=== PATIENT | female | born 1950 | race African-American/Black ===

== ENCOUNTER 2017-05-23 07:54 | Emergency (ER) | payer MEDICARE, MEDICAID ==
[~2017-05-23] VITALS: Ht 167.6 cm; Wt 72.0 kg
[~2017-05-23 07:54] MED LIST: ATOR40TA70 PO; AZOPT EACHEYE; BIMA2.5D4 EACHEYE; CHOL100044 PO; CLOP75TA33 PO; DOCU-138 PO; FERR-63 PO; FOLI-43 PO; GABA-531 PO; MAGN400C PO; NEBI20TA2 PO; OMEP20TA2 PO; PROAIR INH; SITA100T11 PO; TIMO15DR12 EACHEYE; TRAM50TA3 PO; TRIA1CAP6 PO; VITAMIN C PO; WELCHOL PO
[2017-05-23] MEDS ORDERED: LIDOCAINE HCL 1% 20ML VIAL (Pyxis) INJ MC ONE (09:15)
[2017-05-23 10:40] VITALS: BP 196/62
[2017-05-23] MEDS ORDERED: ACETAMINOPHEN 500MG TABLET PO ONE (10:45)
== END 2017-05-23 11:01 | disposition home or self-care (01) ==
LOC: ER 08:19
DX: S01.511A Laceration without foreign body of lip, initial encounter (principal); I10 Essential (primary) hypertension; E11.9 Type 2 diabetes mellitus without complications; J45.909 Unspecified asthma, uncomplicated; M19.90 Unspecified osteoarthritis, unspecified site; Z86.73 Personal history of transient ischemic attack (TIA), and cerebral infarction without residual deficits; Z88.8 Allergy status to other drugs, medicaments and biological substances; Z88.1 Allergy status to other antibiotic agents; Z91.012 Allergy to eggs; Z79.01 Long term (current) use of anticoagulants; W18.30XA Fall on same level, unspecified, initial encounter; Y93.A1 Activity, exercise machines primarily for cardiorespiratory conditioning; Y92.89 Other specified places as the place of occurrence of the external cause; Y99.8 Other external cause status
CPT/HCPCS: 12011; 99284; J3490

== ENCOUNTER 2017-09-03 01:11 | Emergency (ER) | payer MEDICARE, MEDICAID ==
[~2017-09-03] VITALS: Ht 157.5 cm; Wt 87.0 kg
[2017-09-03 03:49] LABS: BASOPHILS % 0.3 % (0.0-2.0); EOSINOPHILS % 1.5 % (0.0-5.0); HEMATOCRIT. 33.3 % (36.0-48.0); HEMOGLOBIN. 10.9 g/dL (12.0-16.0); LYMPHOCYTES % 25.7 % (20.0-50.0); MEAN CORPUSCULAR HEMOGLOBIN 29.4 pg (28.0-32.0); MEAN CORPUSCULAR VOLUME 89.7 fL (81.0-99.0); MEAN PLATELET VOLUME 7.4 fl (7.4-10.4); MONOCYTES % 7.6 % (2.0-8.0); NEUTROPHILS % 64.9 % (40.0-76.0); PLATELET 275 x1000/uL (130-400); RED BLOOD CELL COUNT 3.71 mill/uL (4.2-5.4); RED CELL DISTRIBUTION WIDTH 12.9 % (11.6-14.6)
[2017-09-03 03:52] LABS: CHLORIDE 103 mEq/L (98-107)
[2017-09-03 04:26] LABS: CLARITY URINE CLEAR (CLEAR); COLOR URINE YELLOW (YELLOW); KETONES URINE NEGATIVE (NEGATIVE); LEUKOCYTE ESTERASE URINE 1+ (NEGATIVE); NITRITE URINE NEGATIVE (NEGATIVE); OCCULT BLOOD URINE NEGATIVE (NEGATIVE); PROTEIN URINE NEGATIVE (NEGATIVE); UROBILINOGEN URINE 0.2 E.U./dL (0.2-1.0)
[2017-09-03] MEDS ORDERED: KETOROLAC 30MG/ML VIAL IV ONE (04:30)
[2017-09-03 07:50] VITALS: BP 138/73
== END 2017-09-03 08:12 | disposition home or self-care (01) ==
LOC: ER 01:11
DX: R51 Headache (principal); J45.909 Unspecified asthma, uncomplicated; E11.9 Type 2 diabetes mellitus without complications; I10 Essential (primary) hypertension; M19.90 Unspecified osteoarthritis, unspecified site; Z86.73 Personal history of transient ischemic attack (TIA), and cerebral infarction without residual deficits; Z88.8 Allergy status to other drugs, medicaments and biological substances; Z88.1 Allergy status to other antibiotic agents; Z91.012 Allergy to eggs; Z79.01 Long term (current) use of anticoagulants
CPT/HCPCS: 36415; 70450; 71045; 80053; 81003; 85025; 86850; 86900; 86901; 93005; 96374; 99285; J1885

== ENCOUNTER → 2017-09-16 | Outpatient (CLI) | payer MEDICARE, MEDICAID | END | disposition home or self-care (01) | LOC: RAD 10:11 | PROVIDERS: ATTEND Specialist | DX: Z12.31 Encounter for screening mammogram for malignant neoplasm of breast (principal) | CPT/HCPCS: 77067 ==

== ENCOUNTER 2021-12-31 11:10 | Emergency (ER) | payer MEDICARE, MEDICAID ==
[~2021-12-31] VITALS: Ht 154.9 cm; Wt 88.0 kg
[~2021-12-31 11:10] MED LIST changes: -GABA-531 PO; +GABA-532 PO; -OMEP20TA2 PO; +OMEP20TA23 PO
[2021-12-31 11:32] VITALS: BP 142/56
[2021-12-31] MEDS ORDERED: IBUP-2028 MT (16:01)
== END 2021-12-31 16:34 | disposition home or self-care (01) ==
LOC: ER 11:10
DX: M25.561 Pain in right knee (principal); M25.562 Pain in left knee; D64.9 Anemia, unspecified; J45.909 Unspecified asthma, uncomplicated; E11.9 Type 2 diabetes mellitus without complications; I10 Essential (primary) hypertension; Z86.73 Personal history of transient ischemic attack (TIA), and cerebral infarction without residual deficits; Z98.51 Tubal ligation status; Z79.899 Other long term (current) drug therapy
CPT/HCPCS: 73060; 73560; 99284

== ENCOUNTER 2022-01-21 11:14 | Inpatient (IN) | payer MEDICARE, MEDICAID ==
[~2022-01-21] VITALS: Ht 154.9 cm; Wt 88.5 kg
[~2022-01-21 11:14] MED LIST changes: +IBUP-2028 MT
[2022-01-21] MEDS ORDERED: KETOROLAC 30MG/ML VIAL IV STA (11:47)
[2022-01-21 12:20] LABS: BASOPHILS % 0.3 % (0.0-2.0); EOSINOPHILS % 1.1 % (0.0-5.0); HEMOGLOBIN. 10.6 g/dL (12.0-16.0); LYMPHOCYTES % 26.9 % (20.0-50.0); MEAN CORPUSCULAR HEMOGLOBIN 30.5 pg (28.0-32.0); MEAN CORPUSCULAR VOLUME 92.5 fL (81.0-99.0); MEAN PLATELET VOLUME 7.6 fl (7.4-10.4); MONOCYTES % 6.6 % (2.0-8.0); NEUTROPHILS % 65.1 % (40.0-76.0); PLATELET 271 x1000/uL (130-400); RED BLOOD CELL COUNT 3.46 mill/uL (4.2-5.4)
[2022-01-21 12:36] LABS: CHLORIDE 105 mEq/L (98-107); PROTHROMBIN TIME 10.5 sec (9.6-11.0)
[2022-01-21] MEDS ORDERED: ACETAMINOPHEN 325MG TABLET PO PRN (13:45)
[2022-01-21] MEDS ORDERED: ONDANSETRON HCL 4MG/2ML INJ IV PRN (13:45)
[2022-01-21] MEDS ORDERED: DEXTROSE 50% WATER 50ML SYRINGE IV PRN (13:45)
[2022-01-21 14:52] VITALS: BP 165/45
[2022-01-21 15:00] VITALS: BP 165/45
[2022-01-21 17:31] VITALS: BP_SYST 155; BP_SYST 170; BP_DIAS 50
[2022-01-21] MEDS: BLOOD SUGAR DIAGNOSTIC STRIP TEST SCH ×2 (18:00→21:00)
[2022-01-21] MEDS: INSULIN LISPRO 100 UNITS/ML SUBCUT SCH ×2 (18:00→21:00)
[2022-01-21] MEDS: AMLODIPINE 10MG TABLET PO SCH (18:06)
[2022-01-21 19:10] LABS: CLARITY URINE CLOUDY (CLEAR); COLOR URINE YELLOW (YELLOW); KETONES URINE TRACE (NEGATIVE); LEUKOCYTE ESTERASE URINE 1+ (NEGATIVE); NITRITE URINE NEGATIVE (NEGATIVE); OCCULT BLOOD URINE NEGATIVE (NEGATIVE); PH URINE 5.5 (4.5-8.0); PROTEIN URINE TRACE (NEGATIVE); SPECIFIC GRAVITY URINE 1.018 (1.005-1.030); UROBILINOGEN URINE 0.2 E.U./dL (0.2-1.0)
[2022-01-21 20:00] VITALS: BP 124/59
[2022-01-22] VITALS: BP 122/65
[2022-01-22 03:44] VITALS: BP 119/54
[2022-01-22] MEDS: BLOOD SUGAR DIAGNOSTIC STRIP TEST SCH ×4 (07:00→20:53)
[2022-01-22] MEDS: INSULIN LISPRO 100 UNITS/ML SUBCUT SCH ×4 (07:00→20:53)
[2022-01-22 08:00] VITALS: BP 164/74
[2022-01-22 08:18] LABS: BASOPHILS % 0.4 % (0.0-2.0); EOSINOPHILS % 1.3 % (0.0-5.0); HEMATOCRIT. 30.5 % (36.0-48.0); HEMOGLOBIN. 9.9 g/dL (12.0-16.0); LYMPHOCYTES % 36.2 % (20.0-50.0); MEAN CORPUSCULAR HEMOGLOBIN 29.9 pg (28.0-32.0); MEAN CORPUSCULAR VOLUME 92.2 fL (81.0-99.0); MEAN PLATELET VOLUME 8.1 fl (7.4-10.4); MONOCYTES % 8.2 % (2.0-8.0); NEUTROPHILS % 53.9 % (40.0-76.0); PLATELET 239 x1000/uL (130-400); RED CELL DISTRIBUTION WIDTH 14.1 % (11.6-14.6)
[2022-01-22] MEDS: ASPIRIN 81MG TABLET PO SCH (08:35)
[2022-01-22] MEDS: AMLODIPINE 10MG TABLET PO SCH (08:36)
[2022-01-22] MEDS ORDERED: ASPIRIN 81MG TABLET PO SCH (09:00)
[2022-01-22] MEDS ORDERED: PNEUMOCOCCAL 23-VAL P-SAC VAC 0.5 ML IM ONE (10:00)
[2022-01-22] MEDS ORDERED: CEFTRIAXONE 1 G PREMIX 50 ML IV SCH (11:30)
[2022-01-22 12:00] VITALS: BP 174/67
[2022-01-22] MEDS: CEFTRIAXONE 1,000 MG in DEXTROSE 5% WATER 50 ML IV SCH (13:50)
[2022-01-22 15:13] LABS: T4 FREE 1.14 ng/dL (0.76-1.46)
[2022-01-22 16:00] VITALS: BP 152/59
[2022-01-22 20:00] VITALS: BP 141/53
[2022-01-22] MEDS: ATORVASTATIN CALCIUM 20MG TABLET PO SCH (20:53)
[2022-01-23] VITALS: BP 103/53
[2022-01-23 04:00] VITALS: BP 136/57
[2022-01-23] MEDS: BLOOD SUGAR DIAGNOSTIC STRIP TEST SCH ×3 (06:24→18:13)
[2022-01-23 08:00] VITALS: BP 155/56
[2022-01-23] MEDS ORDERED: ENOXAPARIN 40MG/0.4ML SYR SUBCUT SCH (09:00)
[2022-01-23] MEDS: ASPIRIN 81MG TABLET PO SCH (11:38)
[2022-01-23] MEDS: AMLODIPINE 10MG TABLET PO SCH (11:38)
[2022-01-23 12:00] VITALS: BP 148/68
[2022-01-23] MEDS: INSULIN LISPRO 100 UNITS/ML SUBCUT SCH ×4 (12:16→20:55)
[2022-01-23 16:00] VITALS: BP 123/63
[2022-01-23] MEDS: CEFTRIAXONE 1,000 MG in DEXTROSE 5% WATER 50 ML IV SCH (18:14)
[2022-01-23] MEDS: ATORVASTATIN CALCIUM 20MG TABLET PO SCH (20:53)
[2022-01-25] MEDS ORDERED: GLIP10TA10 MT (08:42)
== END 2022-01-23 22:30 | DRG 64 ==
LOC: ER 11:14 → EDBEDREQTM 12:09 → EDBEDREQ 12:09 → EDBEDREQSVC 12:09 → 6WST 13:26 → EDBEDREQ 13:29 → ENRESERV 13:38 → 6WST 15:22
PROVIDERS: ADMIT Family Medicine Adult Medicine; ATTEND Family Medicine Adult Medicine
DX: I63.81 Other cerebral infarction due to occlusion or stenosis of small artery (principal); N17.0 Acute kidney failure with tubular necrosis; G81.91 Hemiplegia, unspecified affecting right dominant side; D64.9 Anemia, unspecified; E66.9 Obesity, unspecified; E11.9 Type 2 diabetes mellitus without complications; E78.00 Pure hypercholesterolemia, unspecified; I10 Essential (primary) hypertension; R53.81 Other malaise; R26.89 Other abnormalities of gait and mobility; I25.10 Atherosclerotic heart disease of native coronary artery without angina pectoris; J45.909 Unspecified asthma, uncomplicated; Z82.3 Family history of stroke; Z90.710 Acquired absence of both cervix and uterus; Z98.51 Tubal ligation status; Z68.36 Body mass index [BMI] 36.0-36.9, adult; Z88.8 Allergy status to other drugs, medicaments and biological substances; Z91.012 Allergy to eggs; Z79.899 Other long term (current) drug therapy
CPT/HCPCS: 36415; 70544; 70551; 71045; 80048; 80053; 80061; 80307; 81003; 82607; 82746; 82962; 83036; 83605; 84145; 84439; 84443; 84481; 84484; 85025; 90732; 92523; 93005; 93306; 93880; 97116; 97162; 97166; 97530; 99285; J0696; J1650; J1815; J1885; J7060

== ENCOUNTER 2022-06-20 15:39 | Emergency (ER) | payer MEDICARE, MEDICAID ==
[~2022-06-20] VITALS: Ht 165.1 cm; Wt 71.0 kg
[~2022-06-20 15:39] MED LIST changes: +AMLO10TA80 PO; +ASPI-1160 PO; -BIMA2.5D4 EACHEYE; -FERR-63 PO; +GLIP10TA10 MT; +GLIP10TA10 PO; +LINA5TAB PO; -NEBI20TA2 PO; -SITA100T11 PO; -TRIA1CAP6 PO; -VITAMIN C PO
[2022-06-20 15:46] VITALS: BP 172/64
[2022-06-20] MEDS ORDERED: SODIUM CHLORIDE 0.9% 1,000 ML IV ONE (16:00)
[2022-06-20] MEDS ORDERED: ONDANSETRON HCL 4MG/2ML INJ IV ONE (16:00)
[2022-06-20 17:16] LABS: BASOPHILS % 0.3 % (0.0-2.0); EOSINOPHILS % 1.7 % (0.0-5.0); HEMATOCRIT. 29.6 % (36.0-48.0); HEMOGLOBIN. 9.7 g/dL (12.0-16.0); LYMPHOCYTES % 25.8 % (20.0-50.0); MEAN CORPUSCULAR HEMOGLOBIN 29.4 pg (28.0-32.0); MEAN CORPUSCULAR VOLUME 90.3 fL (81.0-99.0); MEAN PLATELET VOLUME 7.6 fl (7.4-10.4); MONOCYTES % 7.3 % (2.0-8.0); NEUTROPHILS % 64.9 % (40.0-76.0); PLATELET 378 x1000/uL (130-400); RED BLOOD CELL COUNT 3.28 mill/uL (4.2-5.4); RED CELL DISTRIBUTION WIDTH 14.1 % (11.6-14.6)
[2022-06-20 17:24] LABS: CHLORIDE 107 mEq/L (98-107)
== END 2022-06-21 02:03 | disposition home or self-care (01) ==
LOC: ER 15:55
DX: R42 Dizziness and giddiness (principal); R11.10 Vomiting, unspecified; J45.909 Unspecified asthma, uncomplicated; E11.9 Type 2 diabetes mellitus without complications; I10 Essential (primary) hypertension; Z86.73 Personal history of transient ischemic attack (TIA), and cerebral infarction without residual deficits; Z90.710 Acquired absence of both cervix and uterus; Z98.51 Tubal ligation status; Z79.899 Other long term (current) drug therapy
CPT/HCPCS: 36415; 70450; 71045; 80053; 82962; 83880; 84484; 85025; 99285; J7030

== ENCOUNTER → 2023-06-04 | Day surgery (SDC) | payer MEDICARE, MEDICAID ==
[~2023-06-04] VITALS: Ht 154.9 cm; Wt 71.2 kg
[~2023-06-04] MED LIST changes: +BUPIVACAINE HCL/PF 0.5% (5MG/ML) 10ML ONE; +CIPR-263 MT; +CLINDAMYCIN 600MG PREMIX 50 ML IV ONE; +DEXAMETHASONE 4MG/ML 1ML VIAL ONE; +ESOM40CA53 PO; +FENTANYL CITRATE/PF 50MCG/ML 2ML VIAL ONE; -GLIP10TA10 PO; +GLYCOPYRROLATE 0.2 MG/ML 2ML VIAL ONE; +HYDR-4001 MT; +INSU100I24 SQ; +LABETALOL 5MG/ML SYR 20 MG/4 ML SYRINGE IV PRN; +LEVA15HF4 IH; +MEPERIDINE HCL/PF 25MG/ML CPJ IV PRN; +METR-167 MT; +MIDAZOLAM HCL 2 MG/2 ML VIAL ONE; +NEBI10TA2 MT; +NEBI10TA2 PO; +NEOSTIGMINE METHYLSULFATE 1MG/ML 10 ML VIAL ONE; +ONDANSETRON HCL 4MG/2ML INJ ONE; +PROPOFOL 200MG/20ML VIAL IV ONE; +ROCURONIUM BROMIDE 10MG/ML VIAL 5ML IV ONE; +SEMA0.25 SQ; +SKIN ADHESIVE 0.7 GM EA TOP ONE; +SODIUM CHLORIDE 0.9% 1,000 ML IV SCH; +TRIA1TAB94 PO
[2023-06-04] MEDS: ONDANSETRON HCL 4MG/2ML INJ IV PRN (09:44)
[2023-06-04 09:47] VITALS: BP 135/62; PULSE 75; RESP 24
[2023-06-04] MEDS: HYDROMORPHONE HCL/PF 2MG/ML CPJ IV PRN (09:47)
== END | disposition home or self-care (01) ==
LOC: OR 05:09
PROVIDERS: ATTEND Surgery
DX: K80.10 Calculus of gallbladder with chronic cholecystitis without obstruction (principal); I10 Essential (primary) hypertension; E11.9 Type 2 diabetes mellitus without complications; M19.90 Unspecified osteoarthritis, unspecified site; Z86.2 Personal history of diseases of the blood and blood-forming organs and certain disorders involving the immune mechanism; Z79.899 Other long term (current) drug therapy; Z90.710 Acquired absence of both cervix and uterus; Z98.890 Other specified postprocedural states; Z79.82 Long term (current) use of aspirin; Z79.4 Long term (current) use of insulin; Z88.1 Allergy status to other antibiotic agents; Z88.8 Allergy status to other drugs, medicaments and biological substances
CPT/HCPCS: 82962; 88304; 47562; J3010; J3490 ×4; J1100; J2250; J2710; J2405; J2704; J1170; Z7610 ×27; A4217; J7030

== ENCOUNTER 2024-09-28 11:13 | Emergency (ER) | payer MEDICARE, MEDICAID ==
[~2024-09-28] VITALS: Ht 165.1 cm; Wt 80.0 kg
[~2024-09-28 11:13] MED LIST changes: -BUPIVACAINE HCL/PF 0.5% (5MG/ML) 10ML ONE; -CIPR-263 MT; -CLINDAMYCIN 600MG PREMIX 50 ML IV ONE; -DEXAMETHASONE 4MG/ML 1ML VIAL ONE; -ESOM40CA53 PO; +ESOM40CA65 PO; -FENTANYL CITRATE/PF 50MCG/ML 2ML VIAL ONE; +GABA-1180 PO; -GABA-532 PO; -GLIP10TA10 MT; +GLIP10TA17 MT; -GLYCOPYRROLATE 0.2 MG/ML 2ML VIAL ONE; -IBUP-2028 MT; -LABETALOL 5MG/ML SYR 20 MG/4 ML SYRINGE IV PRN; -LEVA15HF4 IH; +LEVA15HF9 IH; -LINA5TAB PO; -MEPERIDINE HCL/PF 25MG/ML CPJ IV PRN; -METR-167 MT; -MIDAZOLAM HCL 2 MG/2 ML VIAL ONE; +NEBI10TA10 MT; +NEBI10TA10 PO; -NEBI10TA2 MT; -NEBI10TA2 PO; -NEOSTIGMINE METHYLSULFATE 1MG/ML 10 ML VIAL ONE; -OMEP20TA23 PO; -ONDANSETRON HCL 4MG/2ML INJ ONE; -PROAIR INH; -PROPOFOL 200MG/20ML VIAL IV ONE; -ROCURONIUM BROMIDE 10MG/ML VIAL 5ML IV ONE; -SKIN ADHESIVE 0.7 GM EA TOP ONE; -SODIUM CHLORIDE 0.9% 1,000 ML IV SCH; -TIMO15DR12 EACHEYE; -TRAM50TA3 PO
[2024-09-28 11:34] VITALS: TEMP 36.7; O2SAT 97
[2024-09-28 11:58] LABS: BASOPHILS % 0.4 % (0.0-2.0); EOSINOPHILS % 0.7 % (0.0-5.0); HEMATOCRIT. 31.6 % (36.0-48.0); HEMOGLOBIN. 10.1 g/dL (12.0-16.0); LYMPHOCYTES % 26.8 % (20.0-50.0); MEAN CORPUSCULAR VOLUME 90.7 fL (81.0-99.0); MEAN PLATELET VOLUME 7.5 fl (7.4-10.4); MONOCYTES % 6.7 % (2.0-8.0); NEUTROPHILS % 65.4 % (40.0-76.0); PLATELET 253 x1000/uL (130-400); RED BLOOD CELL COUNT 3.49 mill/uL (4.2-5.4); RED CELL DISTRIBUTION WIDTH 14.3 % (11.6-14.6); WHITE BLOOD COUNT 8.9 x1000/uL (4.5-11.0)
[2024-09-28 12:08] LABS: INR 0.9; PROTHROMBIN TIME 10.2 sec (9.6-11.0)
[2024-09-28 12:10] LABS: CHLORIDE 103 mEq/L (98-107); POTASSIUM 4.2 mEq/L (3.5-5.1); SODIUM 135 mEq/L (136-145)
[2024-09-28 12:11] LABS: CALCIUM 9.4 mg/dL (8.7-10.4); CARBON DIOXIDE 25 mEq/L (21-32)
[2024-09-28 12:16] LABS: CREATININE 1.2 mg/dL (0.6-1.0); GLUCOSE 249 mg/dL (70-105); UREA NITROGEN BLOOD 23 mg/dL (9-23)
[2024-09-28 12:17] LABS: TROPONIN I HIGH SENSITIVITY 7 ng/L (3.0-34)
[2024-09-28 12:18] LABS: ALANINE AMINOTRANSFERASE 17 IU/L (10-49); ALBUMIN 3.9 g/dL (3.2-4.8); ASPARTATE AMINOTRANSFERASE 16 IU/L (<34); BILIRUBIN DIRECT 0.2 mg/dL (<=3.0); PHOSPHORUS 3.6 mg/dL (2.5-4.9)
[2024-09-28 12:19] LABS: BILIRUBIN TOTAL 0.6 mg/dL (0.1-1.0); PROTEIN TOTAL 7.1 g/dL (6.0-8.3)
[2024-09-28] MEDS: SODIUM CHLORIDE 0.9% 1,000 ML IV ONE (14:38)
[2024-09-28 15:49] LABS: CLARITY URINE CLEAR (CLEAR); COLOR URINE YELLOW (YELLOW); GLUCOSE URINE NEGATIVE (NEGATIVE); KETONES URINE NEGATIVE (NEGATIVE); LEUKOCYTE ESTERASE URINE NEGATIVE (NEGATIVE); NITRITE URINE NEGATIVE (NEGATIVE); OCCULT BLOOD URINE NEGATIVE (NEGATIVE); PH URINE 7.5 (4.5-8.0); PROTEIN URINE NEGATIVE (NEGATIVE); SPECIFIC GRAVITY URINE 1.009 (1.005-1.030); UROBILINOGEN URINE 0.2 E.U./dL (0.2-1.0)
[2024-09-28 16:37] VITALS: BP 138/50; PULSE 78; RESP 17; O2SAT 100
== END 2024-09-28 17:13 | disposition home or self-care (01) ==
LOC: ER 11:13
DX: R53.1 Weakness (principal); E11.9 Type 2 diabetes mellitus without complications; N17.9 Acute kidney failure, unspecified; J45.909 Unspecified asthma, uncomplicated; I10 Essential (primary) hypertension; Z90.710 Acquired absence of both cervix and uterus; Z86.73 Personal history of transient ischemic attack (TIA), and cerebral infarction without residual deficits; Z79.899 Other long term (current) drug therapy; Z79.84 Long term (current) use of oral hypoglycemic drugs; Z79.82 Long term (current) use of aspirin; Z79.02 Long term (current) use of antithrombotics/antiplatelets; Z91.012 Allergy to eggs
CPT/HCPCS: 99285; 71045; 80076; 80048; 81003; 83880; 83735; 84100; 85025; 85610; 84484; 36415; 93005; J7030

== ENCOUNTER 2025-04-03 04:50 | Inpatient (IN) | payer MEDICARE, MEDICAID ==
[~2025-04-03] VITALS: Ht 162.6 cm; Wt 73.0 kg
[~2025-04-03 04:50] MED LIST changes: +COLE625T13 PO; -ESOM40CA65 PO; -GABA-1180 PO; +GABA-529 PO; -GLIP10TA17 MT; +GLIP10TA17 PO; +HYDR-4009 MT; +LATA2.5D7 EACHEYE; -LEVA15HF9 IH; +LOSA25TA26 PO; -MAGN400C PO; +MAGN400T26 PO; +METO25TA6 PO; -NEBI10TA10 MT; -NEBI10TA10 PO; +OMEP40CA20 PO; -SEMA0.25 SQ; +SEMA2PEN SQ; -WELCHOL PO
[2025-04-03 04:52] VITALS: O2SAT 100
[2025-04-03] MEDS: SODIUM CHLORIDE 0.9% (SEPSIS BOLUS) IV ONE (06:57)
[2025-04-03] MEDS: LEVOFLOXACIN 500MG PREMIX 100 ML IV ONE (07:01)
[2025-04-03 07:27] LABS: INR 1.1
[2025-04-03 07:28] LABS: BASOPHILS % 0.1 % (0.0-2.0); EOSINOPHILS % 0.4 % (0.0-5.0); HEMATOCRIT. 23.1 % (36.0-48.0); HEMOGLOBIN. 7.5 g/dL (12.0-16.0); LYMPHOCYTES % 27.2 % (20.0-50.0); MEAN PLATELET VOLUME 7.4 fl (7.4-10.4); MONOCYTES % 3.7 % (2.0-8.0); NEUTROPHILS % 68.6 % (40.0-76.0); PLATELET 287 x1000/uL (130-400); RED BLOOD CELL COUNT 2.50 mill/uL (4.2-5.4); RED CELL DISTRIBUTION WIDTH 20.3 % (11.6-14.6)
[2025-04-03 07:38] LABS: CREATININE 0.9 mg/dL (0.6-1.0); TROPONIN I HIGH SENSITIVITY 5 ng/L (3.0-34); UREA NITROGEN BLOOD 13 mg/dL (9-23)
[2025-04-03 07:39] LABS: ASPARTATE AMINOTRANSFERASE 22 IU/L (<34); PROTEIN TOTAL 6.1 g/dL (6.0-8.3)
[2025-04-03 07:40] LABS: BILIRUBIN DIRECT 0.3 mg/dL (<=3.0); BILIRUBIN TOTAL 0.5 mg/dL (0.1-1.0)
[2025-04-03 09:21] LABS: CLARITY URINE TURBID (CLEAR); COLOR URINE ORANGE (YELLOW); GLUCOSE URINE NEGATIVE (NEGATIVE); KETONES URINE NEGATIVE (NEGATIVE); LEUKOCYTE ESTERASE URINE 3+ (NEGATIVE); NITRITE URINE NEGATIVE (NEGATIVE); OCCULT BLOOD URINE 3+ (NEGATIVE); PH URINE 6.5 (4.5-8.0); PROTEIN URINE 2+ (NEGATIVE); SPECIFIC GRAVITY URINE 1.009 (1.005-1.030); UROBILINOGEN URINE 0.2 E.U./dL (0.2-1.0)
[2025-04-03 09:47] LABS: BACTERIA URINE TRACE; RBC URINE TNTC /hpf (0-2); SQUAMOUS EPITHELIAL CELL URINE 1+ /lpf (RARE/1+); WBC URINE TNTC /hpf (0-2)
[2025-04-03 09:48] LABS: YEAST URINE NONE SEEN
[2025-04-03 10:38] LABS: TROPONIN I HIGH SENSITIVITY 8 ng/L (3.0-34)
[2025-04-03] MEDS ORDERED: CLONIDINE 0.1MG TABLET PO PRN (11:15)
[2025-04-03] MEDS ORDERED: DOCUSATE SODIUM 100MG CAPSULE PO PRN (11:15)
[2025-04-03] MEDS ORDERED: IPRATROPIUM/ALBUTEROL 0.5-3(2.5)MG/3ML NEB HHN PRN (11:15)
[2025-04-03] MEDS ORDERED: ACETAMINOPHEN 325MG TABLET PO PRN (11:15)
[2025-04-03] MEDS ORDERED: DEXTROSE 50% WATER 50ML SYRINGE IV PRN (11:15)
[2025-04-03] MEDS ORDERED: ONDANSETRON HCL 4MG/2ML INJ IV PRN (11:15)
[2025-04-03] MEDS: FERROUS SULFATE 325MG TABLET PO SCH (11:38)
[2025-04-03] MEDS: SODIUM CHLORIDE 0.9% 1,000 ML IV SCH (11:39)
[2025-04-03 12:29] LABS: VITAMIN B12 SERUM 2996 pg/mL (211-911)
[2025-04-03] MEDS: BLOOD SUGAR DIAGNOSTIC STRIP TEST SCH (13:00)
[2025-04-03] MEDS: ASPIRIN 81MG TABLET PO SCH (13:43)
[2025-04-03] MEDS: FOLIC ACID 1MG TABLET PO SCH (13:43)
[2025-04-03] MEDS: PANTOPRAZOLE SODIUM 40 MG/VIAL IV SCH (13:44)
[2025-04-03] MEDS ORDERED: EPOETIN ALFA-EPBX 4,000 UNITS/ML VIAL SUBCUT SCH (14:00)
[2025-04-03] MEDS: AMLODIPINE 10MG TABLET PO SCH (15:50)
[2025-04-03] MEDS: GABAPENTIN 100MG CAPSULE PO SCH (15:50)
[2025-04-03 16:59] VITALS: BP 133/57; PULSE 97; RESP 18; TEMP 35.9; O2SAT 100
[2025-04-03] MEDS: INSULIN LISPRO 100 UNITS/ML SUBCUT SCH (17:00)
[2025-04-03 17:04] LABS: CLARITY URINE TURBID (CLEAR); COLOR URINE RED (YELLOW); GLUCOSE URINE NEGATIVE (NEGATIVE); KETONES URINE TRACE (NEGATIVE); LEUKOCYTE ESTERASE URINE 3+ (NEGATIVE); NITRITE URINE NEGATIVE (NEGATIVE); OCCULT BLOOD URINE 3+ (NEGATIVE); PH URINE 6.0 (4.5-8.0); PROTEIN URINE 2+ (NEGATIVE); SPECIFIC GRAVITY URINE 1.011 (1.005-1.030); UROBILINOGEN URINE 0.2 E.U./dL (0.2-1.0)
[2025-04-03 17:22] LABS: BACTERIA URINE 1+; RBC URINE TNTC /hpf (0-2); SQUAMOUS EPITHELIAL CELL URINE 1+ /lpf (RARE/1+); WBC URINE TNTC /hpf (0-2)
[2025-04-03 18:12] VITALS: BP 133/57; PULSE 96; RESP 16; TEMP 36.0844
[2025-04-03 19:16] LABS: TROPONIN I HIGH SENSITIVITY 20 ng/L (3.0-34)
[2025-04-03 20:00] VITALS: BP 117/48; PULSE 87; RESP 20; TEMP 36.7; O2SAT 98
[2025-04-03] MEDS: LATANOPROST 0.005% OPHTH DROPS 2.5ML EACHEYE SCH (21:00)
[2025-04-03] MEDS: ATORVASTATIN CALCIUM 40MG TABLET PO SCH (21:30)
[2025-04-04] VITALS: BP 140/54; PULSE 82; RESP 18; TEMP 37; O2SAT 98
[2025-04-04 04:00] VITALS: BP 118/56; PULSE 97; RESP 18; TEMP 36.1; O2SAT 98
[2025-04-04] MEDS: ACETAMINOPHEN 325MG TABLET PO PRN (06:42)
[2025-04-04 07:57] VITALS: BP_SYST 124; BP_SYST 131; BP_DIAS 49; BP_DIAS 58; PULSE 18; PULSE 95; RESP 18; TEMP 35.8; O2SAT 93
[2025-04-04 12:16] VITALS: BP 125/51; PULSE 84; RESP 18; TEMP 35.7; O2SAT 100
[2025-04-04] MEDS: LEVOFLOXACIN 500MG PREMIX 100 ML IV SCH (13:00)
[2025-04-04] MEDS: SODIUM CHLORIDE 0.9% 250 ML IV ONE (13:08)
[2025-04-04 16:35] VITALS: BP 113/46; PULSE 82; RESP 20; TEMP 36.2; O2SAT 100
[2025-04-04 20:00] VITALS: BP 120/58; PULSE 89; RESP 18; TEMP 36; O2SAT 100
[2025-04-04] MEDS: LACTULOSE 20G/30ML UDC PO SCH (23:07)
[2025-04-04] MEDS: CALCIUM GLUCONATE 1,000 MG in SODIUM CHLORIDE 0.9% 50 ML IV NR (23:08)
[2025-04-05] VITALS (9 sets, daily range): BP systolic 93–139; BP diastolic 35–62; PULSE 89–109; RESP 18–20; TEMP 35.8–37.1; O2SAT 100
[2025-04-05 06:13] LABS: FOLATE HEMATOCRIT 20.0 % (34.0-46.6)
[2025-04-05] MEDS: SODIUM CHLORIDE 0.9% 1,000 ML IV ONE (10:15)
[2025-04-05 12:22] LABS: CREATININE 0.7 mg/dL (0.6-1.0)
[2025-04-05 12:23] LABS: UREA NITROGEN BLOOD 5 mg/dL (9-23)
[2025-04-05 12:28] LABS: FOLIC ACID (FOLATE) SERUM > 20.00 ng/mL (>5.38)
[2025-04-05 13:07] LABS: FOLATE HEMOLYSATE 523.0 ng/mL (Not Estab.); FOLATE RBC 2615 ng/mL (>498)
[2025-04-05] MEDS: MULTIVITAMINS,THER W-MINERALS TABLET PO SCH (13:24)
[2025-04-05] MEDS: ASCORBIC ACID 500 MG TABLET PO SCH (13:24)
[2025-04-05] MEDS: CALCIUM GLUCONATE 1GM PREMIX 50 ML IV NR (16:00)
[2025-04-05 17:17] LABS: BASOPHILS % 0.3 % (0.0-2.0); EOSINOPHILS % 1.0 % (0.0-5.0); LYMPHOCYTES % 32.0 % (20.0-50.0); MEAN PLATELET VOLUME 7.1 fl (7.4-10.4); MONOCYTES % 4.9 % (2.0-8.0); NEUTROPHILS % 61.8 % (40.0-76.0); PLATELET 264 x1000/uL (130-400); RED BLOOD CELL COUNT 1.99 mill/uL (4.2-5.4); RED CELL DISTRIBUTION WIDTH 20.7 % (11.6-14.6)
[2025-04-05 17:28] LABS: HEMATOCRIT. 18.6 % (36.0-48.0); HEMOGLOBIN. 6.0 g/dL (12.0-16.0)
[2025-04-06] VITALS (7 sets, daily range): BP systolic 112–154; BP diastolic 43–79; PULSE 81–97; RESP 18–20; TEMP 36–36.9; O2SAT 96–100
[2025-04-06 06:38] LABS: CREATININE 0.6 mg/dL (0.6-1.0)
[2025-04-06 06:39] LABS: UREA NITROGEN BLOOD 5 mg/dL (9-23)
[2025-04-06] MEDS ORDERED: LIDOCAINE HCL 1% 10 MG/ML 10ML VIAL ONE (08:05)
[2025-04-06] MEDS: FERROUS SULFATE 325MG TABLET PO SCH (09:26)
[2025-04-06] MEDS: CALCIUM GLUCONATE 1GM PREMIX 50 ML IV NR (11:31)
[2025-04-06 12:09] LABS: BASOPHILS % 0.2 % (0.0-2.0); EOSINOPHILS % 0.6 % (0.0-5.0); HEMATOCRIT. 27.2 % (36.0-48.0); HEMOGLOBIN. 9.1 g/dL (12.0-16.0); LYMPHOCYTES % 33.6 % (20.0-50.0); MEAN PLATELET VOLUME 7.1 fl (7.4-10.4); MONOCYTES % 4.1 % (2.0-8.0); NEUTROPHILS % 61.5 % (40.0-76.0); PLATELET 261 x1000/uL (130-400); RED BLOOD CELL COUNT 2.95 mill/uL (4.2-5.4); RED CELL DISTRIBUTION WIDTH 18.0 % (11.6-14.6)
[2025-04-07] VITALS: BP 118/40; PULSE 90; RESP 18; TEMP 36; O2SAT 100
[2025-04-07 04:00] VITALS: BP 103/54; PULSE 97; RESP 18; TEMP 36.5; O2SAT 100
[2025-04-07 08:00] VITALS: BP 140/56; PULSE 96; RESP 18; TEMP 37.1; O2SAT 100
[2025-04-07 08:35] LABS: BASOPHILS % 0.2 % (0.0-2.0); EOSINOPHILS % 1.3 % (0.0-5.0); HEMATOCRIT. 25.7 % (36.0-48.0); HEMOGLOBIN. 8.5 g/dL (12.0-16.0); LYMPHOCYTES % 38.5 % (20.0-50.0); MEAN PLATELET VOLUME 7.3 fl (7.4-10.4); MONOCYTES % 5.3 % (2.0-8.0); NEUTROPHILS % 54.7 % (40.0-76.0); PLATELET 243 x1000/uL (130-400); RED BLOOD CELL COUNT 2.78 mill/uL (4.2-5.4); RED CELL DISTRIBUTION WIDTH 18.0 % (11.6-14.6)
[2025-04-07 08:54] LABS: CREATININE 0.6 mg/dL (0.6-1.0); UREA NITROGEN BLOOD 7 mg/dL (9-23)
[2025-04-07 08:56] LABS: PHOSPHORUS 2.6 mg/dL (2.5-4.9)
[2025-04-07] MEDS: LEVOFLOXACIN 250MG TABLET PO SCH (11:55)
[2025-04-07 12:00] VITALS: BP 133/47; PULSE 59; RESP 18; TEMP 36.6; O2SAT 99
[2025-04-07] MEDS ORDERED: LEVOFLOXACIN 250MG PREMIX 50 ML IV SCH (12:00)
[2025-04-07] MEDS: MAGNESIUM 4 G PREMIX 100 ML IV NR (14:09)
[2025-04-07 16:00] VITALS: BP 129/54; PULSE 91; RESP 18; TEMP 37.1; O2SAT 100
[2025-04-07 20:34] VITALS: BP 121/48; PULSE 95; RESP 19; TEMP 36.2; O2SAT 98
[2025-04-08 00:16] VITALS: BP 165/48; PULSE 87; RESP 19; TEMP 36.6; O2SAT 100
[2025-04-08 04:00] VITALS: BP 107/33; PULSE 64; RESP 19; TEMP 36.3; O2SAT 100
[2025-04-08 07:13] LABS: BASOPHILS % 0.2 % (0.0-2.0); EOSINOPHILS % 0.7 % (0.0-5.0); HEMATOCRIT. 24.4 % (36.0-48.0); HEMOGLOBIN. 8.1 g/dL (12.0-16.0); LYMPHOCYTES % 35.8 % (20.0-50.0); MEAN PLATELET VOLUME 7.1 fl (7.4-10.4); MONOCYTES % 6.4 % (2.0-8.0); NEUTROPHILS % 56.9 % (40.0-76.0); PLATELET 212 x1000/uL (130-400); RED BLOOD CELL COUNT 2.62 mill/uL (4.2-5.4); RED CELL DISTRIBUTION WIDTH 17.9 % (11.6-14.6)
[2025-04-08 07:31] LABS: CREATININE 0.5 mg/dL (0.6-1.0); UREA NITROGEN BLOOD 9 mg/dL (9-23)
[2025-04-08 08:00] VITALS: BP 135/62; PULSE 71; RESP 17; TEMP 36.7; O2SAT 98
[2025-04-08] MEDS ORDERED: IOHEXOL-350 100 ML BOTTLE ONE (10:44)
[2025-04-08 12:00] VITALS: PULSE 94; RESP 19; TEMP 36.6; O2SAT 99
[2025-04-08 16:00] VITALS: BP 142/58; PULSE 92; RESP 18; TEMP 36.4; O2SAT 99
[2025-04-08 20:00] VITALS: BP 112/34; PULSE 79; RESP 18; TEMP 36.3; O2SAT 99
[2025-04-09] VITALS: BP 111/39; PULSE 77; RESP 16; TEMP 36.1; O2SAT 100
[2025-04-09 04:00] VITALS: BP 132/51; PULSE 82; RESP 16; TEMP 36.5; O2SAT 100
[2025-04-09 06:12] LABS: BASOPHILS % 0.4 % (0.0-2.0); EOSINOPHILS % 1.0 % (0.0-5.0); HEMATOCRIT. 25.7 % (36.0-48.0); HEMOGLOBIN. 8.2 g/dL (12.0-16.0); LYMPHOCYTES % 45.9 % (20.0-50.0); MEAN PLATELET VOLUME 7.2 fl (7.4-10.4); MONOCYTES % 5.3 % (2.0-8.0); NEUTROPHILS % 47.4 % (40.0-76.0); PLATELET 214 x1000/uL (130-400); RED BLOOD CELL COUNT 2.71 mill/uL (4.2-5.4); RED CELL DISTRIBUTION WIDTH 18.3 % (11.6-14.6)
[2025-04-09 08:00] VITALS: BP 107/51; PULSE 92; RESP 17; TEMP 36.5; O2SAT 97
[2025-04-09 12:00] VITALS: BP 119/43; PULSE 90; RESP 16; TEMP 36.6; O2SAT 100
[2025-04-09 16:00] VITALS: BP 136/43; PULSE 82; RESP 17; TEMP 36.6; O2SAT 98
[2025-04-09 20:00] VITALS: BP 131/52; PULSE 85; RESP 18; TEMP 36.3; O2SAT 100
[2025-04-10] VITALS (7 sets, daily range): BP systolic 119–146; BP diastolic 48–74; PULSE 64–91; RESP 16–18; TEMP 35.5–36.9; O2SAT 94–100
[2025-04-11] VITALS: BP 159/55; PULSE 86; RESP 17; TEMP 36.5; O2SAT 100
[2025-04-11 04:00] VITALS: BP 144/50; PULSE 95; RESP 18; TEMP 36.5; O2SAT 100
[2025-04-11 08:00] VITALS: BP 163/47; PULSE 101; RESP 18; TEMP 36.5; O2SAT 100
[2025-04-11 12:00] VITALS: BP 143/42; PULSE 89; RESP 18; TEMP 36.5; O2SAT 100
[2025-04-11 16:00] VITALS: BP 132/79; PULSE 95; RESP 18; TEMP 36.5; O2SAT 100
[2025-04-11 20:00] VITALS: BP 131/45; PULSE 91; RESP 18; TEMP 36.6; O2SAT 100
[2025-04-12] VITALS: BP 116/47; PULSE 83; RESP 18; TEMP 36.4; O2SAT 100
[2025-04-12 04:00] VITALS: BP 130/45; PULSE 89; RESP 18; TEMP 36.2; O2SAT 100
[2025-04-12 08:00] VITALS: BP 124/53; PULSE 91; RESP 17; TEMP 36.3; O2SAT 96
[2025-04-12 12:00] VITALS: BP 139/51; PULSE 91; RESP 17; TEMP 36.8; O2SAT 99
[2025-04-12 16:00] VITALS: BP 126/48; PULSE 89; RESP 19; TEMP 36.3; O2SAT 100
[2025-04-12 20:00] VITALS: BP 126/49; PULSE 86; RESP 18; TEMP 36.6; O2SAT 100
[2025-04-12 20:23] LABS: BASOPHILS % 0.4 % (0.0-2.0); EOSINOPHILS % 0.3 % (0.0-5.0); HEMATOCRIT. 22.1 % (36.0-48.0); HEMOGLOBIN. 7.1 g/dL (12.0-16.0); LYMPHOCYTES % 37.7 % (20.0-50.0); MEAN PLATELET VOLUME 7.4 fl (7.4-10.4); MONOCYTES % 4.1 % (2.0-8.0); NEUTROPHILS % 57.5 % (40.0-76.0); PLATELET 157 x1000/uL (130-400); RED BLOOD CELL COUNT 2.33 mill/uL (4.2-5.4); RED CELL DISTRIBUTION WIDTH 18.5 % (11.6-14.6)
[2025-04-12 20:38] LABS: CREATININE 0.5 mg/dL (0.6-1.0); UREA NITROGEN BLOOD 11 mg/dL (9-23)
[2025-04-13 04:00] VITALS: BP 133/55; PULSE 87; RESP 18; TEMP 36.3; O2SAT 98
[2025-04-13 08:00] VITALS: BP 129/52; PULSE 81; RESP 20; TEMP 36.8; O2SAT 99
[2025-04-13 12:00] VITALS: BP 132/47; PULSE 85; RESP 18; TEMP 36.6; O2SAT 100
[2025-04-13 14:37] LABS: BASOPHILS % 0.3 % (0.0-2.0); EOSINOPHILS % 0.3 % (0.0-5.0); HEMATOCRIT. 24.4 % (36.0-48.0); HEMOGLOBIN. 8.0 g/dL (12.0-16.0); LYMPHOCYTES % 40.1 % (20.0-50.0); MEAN PLATELET VOLUME 7.2 fl (7.4-10.4); MONOCYTES % 2.6 % (2.0-8.0); NEUTROPHILS % 56.7 % (40.0-76.0); PLATELET 178 x1000/uL (130-400); RED BLOOD CELL COUNT 2.60 mill/uL (4.2-5.4); RED CELL DISTRIBUTION WIDTH 18.6 % (11.6-14.6)
[2025-04-13 14:54] LABS: CREATININE 0.5 mg/dL (0.6-1.0)
[2025-04-13 14:55] LABS: PROTEIN TOTAL 4.5 g/dL (6.0-8.3); UREA NITROGEN BLOOD 9 mg/dL (9-23)
[2025-04-13 14:56] LABS: ASPARTATE AMINOTRANSFERASE 41 IU/L (<34)
[2025-04-13 14:57] LABS: BILIRUBIN TOTAL 0.3 mg/dL (0.1-1.0)
[2025-04-13 16:00] VITALS: BP 141/43; PULSE 92; RESP 16; TEMP 36.8; O2SAT 100
[2025-04-13] MEDS: POTASSIUM CHLORIDE 20MEQ/PACKET PO NR (16:15)
[2025-04-13 20:00] VITALS: BP 97/56; PULSE 89; RESP 18; TEMP 36.4; O2SAT 93
[2025-04-13] MEDS: SODIUM BICARBONATE 8.4% 50MEQ/50ML SYR IV SCH (22:28)
[2025-04-14] VITALS: BP 113/44; PULSE 91; RESP 18; TEMP 36.5; O2SAT 100
[2025-04-14] MEDS: HYDROCODONE/ACETAMINOPHEN 5/325MG TABLET PO NR (03:46)
[2025-04-14 04:00] VITALS: BP 118/39; PULSE 91; RESP 20; TEMP 36.5; O2SAT 100
[2025-04-14 08:00] VITALS: BP 92/49; PULSE 90; RESP 18; TEMP 36.7; O2SAT 100
[2025-04-14] MEDS: SODIUM CHLORIDE 0.9% 500 ML IV NR (09:46)
[2025-04-14 12:00] VITALS: BP 123/42; PULSE 92; RESP 18; TEMP 36.8; O2SAT 98
[2025-04-14 16:00] VITALS: BP 146/68; PULSE 91; RESP 18; TEMP 36.7; O2SAT 99
[2025-04-14] MEDS ORDERED: NALOXONE HCL 0.4MG/ML VIAL IV PRN (16:45)
[2025-04-14] MEDS: TRAMADOL 50MG TABLET PO PRN (17:07)
[2025-04-14 20:00] VITALS: BP 138/56; PULSE 84; RESP 18; TEMP 36.3; O2SAT 95
[2025-04-15] VITALS: RESP 18
[2025-04-15 00:35] LABS: CLARITY URINE CLOUDY (CLEAR); COLOR URINE ORANGE (YELLOW); GLUCOSE URINE NEGATIVE (NEGATIVE); KETONES URINE NEGATIVE (NEGATIVE); LEUKOCYTE ESTERASE URINE 2+ (NEGATIVE); NITRITE URINE NEGATIVE (NEGATIVE); OCCULT BLOOD URINE 3+ (NEGATIVE); PH URINE 6.5 (4.5-8.0); PROTEIN URINE 1+ (NEGATIVE); SPECIFIC GRAVITY URINE 1.013 (1.005-1.030); UROBILINOGEN URINE 0.2 E.U./dL (0.2-1.0)
[2025-04-15 01:00] LABS: RBC URINE 15-25 /hpf (0-2)
[2025-04-15 01:01] LABS: BACTERIA URINE 2+; SQUAMOUS EPITHELIAL CELL URINE FEW /lpf (RARE/1+)
[2025-04-15 04:00] VITALS: BP 106/47; PULSE 87; RESP 16; TEMP 36.6; O2SAT 100
[2025-04-15 08:18] VITALS: BP 129/40; PULSE 88; RESP 14
[2025-04-15 09:33] LABS: BASOPHILS % 0.3 % (0.0-2.0); EOSINOPHILS % 0.8 % (0.0-5.0); HEMATOCRIT. 21.8 % (36.0-48.0); HEMOGLOBIN. 7.2 g/dL (12.0-16.0); LYMPHOCYTES % 33.4 % (20.0-50.0); MEAN PLATELET VOLUME 7.7 fl (7.4-10.4); MONOCYTES % 3.6 % (2.0-8.0); NEUTROPHILS % 61.9 % (40.0-76.0); PLATELET 178 x1000/uL (130-400); RED BLOOD CELL COUNT 2.32 mill/uL (4.2-5.4); RED CELL DISTRIBUTION WIDTH 18.8 % (11.6-14.6)
[2025-04-15 09:40] LABS: BASOPHILS % 0.2 % (0.0-2.0); EOSINOPHILS % 1.1 % (0.0-5.0); HEMATOCRIT. 21.9 % (36.0-48.0); HEMOGLOBIN. 7.2 g/dL (12.0-16.0); LYMPHOCYTES % 34.2 % (20.0-50.0); MEAN PLATELET VOLUME 7.8 fl (7.4-10.4); MONOCYTES % 3.4 % (2.0-8.0); NEUTROPHILS % 61.1 % (40.0-76.0); PLATELET 182 x1000/uL (130-400); RED BLOOD CELL COUNT 2.30 mill/uL (4.2-5.4); RED CELL DISTRIBUTION WIDTH 19.0 % (11.6-14.6)
[2025-04-15 10:07] LABS: CREATININE 0.4 mg/dL (0.6-1.0)
[2025-04-15 10:09] LABS: UREA NITROGEN BLOOD 8 mg/dL (9-23)
[2025-04-15 10:11] LABS: PHOSPHORUS 2.5 mg/dL (2.5-4.9)
[2025-04-15 10:12] LABS: CREATININE 0.4 mg/dL (0.6-1.0)
[2025-04-15 10:13] LABS: UREA NITROGEN BLOOD 7 mg/dL (9-23)
== END 2025-04-15 12:06 | disposition left against medical advice (07) | DRG 811 ==
LOC: ER 04:50 → 7WST 09:44 → EDBEDREQTM 09:52 → EDBEDREQ 09:52 → 8EST 04-08 01:33
PROVIDERS: ADMIT Hospitalist; ATTEND Hospitalist
PROC: 30233N1 Transfusion of Nonautologous Red Blood Cells into Peripheral Vein, Percutaneous Approach (ICD-10-PCS; principal; 2025-04-05)
PROC: 02HV33Z Insertion of Infusion Device into Superior Vena Cava, Percutaneous Approach (ICD-10-PCS; 2025-04-06)
PROC: B548ZZA Ultrasonography of Superior Vena Cava, Guidance (ICD-10-PCS; 2025-04-06)
DX: D64.89 Other specified anemias (principal); L89.323 Pressure ulcer of left buttock, stage 3; L89.623 Pressure ulcer of left heel, stage 3; L89.613 Pressure ulcer of right heel, stage 3; E87.20 Acidosis, unspecified; Z66 Do not resuscitate; L89.159 Pressure ulcer of sacral region, unspecified stage; E83.51 Hypocalcemia; N30.01 Acute cystitis with hematuria; Z79.02 Long term (current) use of antithrombotics/antiplatelets; I69.351 Hemiplegia and hemiparesis following cerebral infarction affecting right dominant side; D63.8 Anemia in other chronic diseases classified elsewhere; E11.40 Type 2 diabetes mellitus with diabetic neuropathy, unspecified; I10 Essential (primary) hypertension; J45.909 Unspecified asthma, uncomplicated; Z68.30 Body mass index [BMI] 30.0-30.9, adult; R62.7 Adult failure to thrive; E11.621 Type 2 diabetes mellitus with foot ulcer; E78.5 Hyperlipidemia, unspecified; K59.00 Constipation, unspecified; E11.51 Type 2 diabetes mellitus with diabetic peripheral angiopathy without gangrene; M85.80 Other specified disorders of bone density and structure, unspecified site; G51.0 Bell's palsy; Z88.8 Allergy status to other drugs, medicaments and biological substances; Z74.01 Bed confinement status; I25.2 Old myocardial infarction; Z79.82 Long term (current) use of aspirin; Z90.710 Acquired absence of both cervix and uterus; Z79.84 Long term (current) use of oral hypoglycemic drugs; Z79.899 Other long term (current) drug therapy; Z90.49 Acquired absence of other specified parts of digestive tract
CPT/HCPCS: 36415; 36573; 71045; 73620; 75635; 80048; 80053; 80076; 81003; 82270; 82550; 82607; 82746; 82747; 82962; 83036; 83540; 83550; 83605; 83735; 83935; 84100; 84145; 84484; 85014; 85025; 85044; 86850; 86900; 86920; 87077; 87186; 93005; 93923; 93970; 96365; 97112; 97162; 97166; 97530; 97535; 99291; A4606; C1725; J0612; J1815; J1956; J2003; J2470; J3475; J3490; J7030; P9016; Q9967